=== PATIENT | female | born 1985 | race Caucasian/White ===

== ENCOUNTER 2020-12-28 12:53 | Emergency (ER) | payer OTHER, SELFPAY ==
[2020-12-28 13:16] VITALS: BP 115/68; PULSE 85; RESP 18; TEMP 37.2; O2SAT 100; BMI 16.9
[2020-12-28 14:51] LABS: MANUAL DIFF FLAG NO
[2020-12-28 14:52] LABS: Basophils Percent Auto 0.9 % (0-2); Eosinophils Absolute Auto 0.1 X10*3/uL (0.0-0.4); Eosinophils Percent Auto 1.3 % (0-4); Hemoglobin 12.8 g/dl (12.0-16.0); Imm Gran Abs Auto 0.01 X10*3/uL (0.00-0.03); Imm Gran Pct Auto 0.2 % (0.0-0.4); Lymphocytes Absolute Auto 1.5 X10*3/uL (1.2-4.9); Lymphocytes Percent Auto 32.9 % (20-40); Mean Corpuscular HGB Conc 33.7 g/dl (31.0-35.0); Mean Corpuscular Hemoglobin 31.8 pg (27.0-33.0); Mean Corpuscular Volume 94.5 fL (80-98); Mean Platelet Volume 10.8 fL (9.4-12.3); Monocytes Absolute Auto 0.4 X10*3/uL (0.1-1.2); Monocytes Percent Auto 8.6 % (2-11); Neutrophils Absolute Auto 2.6 X10*3/uL (2.0-8.3); Neutrophils Percent Auto 56.1 % (45-73); Platelet Count 231 X10*3/uL (160-400); Red Blood Count 4.02 X10*6/uL (4.20-5.50); Red Cell Distribution Width 11.8 % (11.0-16.0); White Blood Count 4.7 X10*3/uL (4.8-10.8)
[2020-12-28 15:15] LABS: Alanine Aminotransferase 10 U/L (0-31); Albumin Level 4.6 g/dL (3.5-5.0); Alkaline Phosphatase 56 U/L (39-117); Amylase 58 U/L (28-100); Anion Gap 13 (12-20); Aspartate Amino Transferase 16 U/L (5-31); Bilirubin Direct 0.2 mg/dL (0.0-0.5); Bilirubin Total 0.6 mg/dL (0.0-1.0); Blood Urea Nitrogen 14 mg/dL (9-16); Carbon Dioxide 27 mmol/L (22-29); Chloride 106 mmol/L (96-108); Creatinine Clr Calc Pharmacy 72.4; Estimated Glomerular Filt Rate > 60; Glucose Random 88 mg/dL (60-115); Lipase 24 U/L (8-78); Sodium 142 mmol/L (135-145); Total Protein 7.1 g/dL (6.5-8.0)
--- NOTE | 2020-12-28 15:27 | ED.GENADULT ---
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 syringe and needle was sticking up from the top of the box and stuck her right index finger through a glove on the needle, which is most likely fresh as it was in the top of the box There is no way to determine who was the source patient Related Data Previous Rx's Medication Instructions Recorded emtricitabine-tenofovir (TDF) 1 tab PO DAILY #5 tab 12/28/20 [Truvada] emtricitabine-tenofovir (TDF) 1 tab PO DAILY #7 tab 12/28/20 [Truvada] raltegravir [Isentress] 400 mg PO BID #10 tab 12/28/20 raltegravir [Isentress] 400 mg PO BID #10 tab 12/28/20 Allergies Allergy/AdvReac Type Severity Reaction Status Date / Time No Known Allergies Allergy Verified 12/28/20 14:23 Review of Systems Review of Systems: Positive for needlestick to right index finger Negatives are no fever no chills no dizziness no weakness no skin rash no numbness or tingling PMFSH Past Medical History Source: nursing notes reviewed Social History Social History Advance Directives: No Advance Directives Information Provided: Yes Physical Exam Vital Signs: Vital Signs: Last Vital Signs Temp 98.9 F 12/28/20 13:16 Pulse 85 12/28/20 13:16 Resp 18 12/28/20 13:16 BP 115/68 12/28/20 13:16 Pulse Ox 100 12/28/20 13:16 Body Mass Index 16.9 General appearance no distress comfortable relax cooperative Neck is supple Respiratory no distress Extremity exam full range of motion x4 Right finger tip there was no visible wound but patient did say she pushed some blood out of it after the stick Skin no rash Neuro no focal deficit Course Course Course Narrative: It was discussed with patient that remote risk of HIV infection cannot be eliminated as it is unclear who is the source patient and the fingerstick was fresh despite being through a glove She is informed risk is very low but there is no way to completely eliminate risk and she opted to take the prophylaxis and she will follow with [facility] for further evaluation and prophylaxis was offered, but when about to take the medicine she said she wants to think about it more did not want to take it now and asked if I could write a prescription It was explained that if she is going to take the medicine the longer we await the less the benefit and she still wants to take some time to decide Medical Decision Making Lab Data Result diagrams: 12/28/20 14:46 12/28/20 14:46 Labs: Lab Results 12/28/20 12/28/20 12/28/20 Range/Units 14:46 14:46 14:46 WBC 4.7 L (4.8-10.8) X10*3/uL RBC 4.02 L (4.20-5.50) X10*6/uL Hgb 12.8 (12.0-16.0) g/dl Hct 38.0 (37-47) % MCV 94.5 (80-98) fL MCH 31.8 (27.0-33.0) pg MCHC 33.7 (31.0-35.0) g/dl RDW 11.8 (11.0-16.0) % Plt Count 231 (160-400) X10*3/uL MPV 10.8 (9.4-12.3) fL Immature Gran % (Auto) 0.2 (0.0-0.4) % Neut % (Auto) 56.1 (45-73) % Lymph % (Auto) 32.9 (20-40) % Calvert % (Auto) 8.6 (2-11) % Eos % (Auto) 1.3 (0-4) % Baso % (Auto) 0.9 (0-2) % Lymph # (Auto) 1.5 (1.2-4.9) X10*3/uL Calvert # (Auto) 0.4 (0.1-1.2) X10*3/uL Eos # (Auto) 0.1 (0.0-0.4) X10*3/uL Baso # (Auto) 0.0 (0.0-0.2) X10*3/uL Abs Immat Gran (auto) 0.01 (0.00-0.03) X10*3/uL Absolute Neuts (auto) 2.6 (2.0-8.3) X10*3/uL Absolute Nucleated RBC 0.000 (0.0-0.012) X10*3/uL Nucleated RBC % (auto) 0.0 (0.0-0.2) /100WBC Sodium 142 (135-145) mmol/L Potassium 4.0 (3.3-5.1) mmol/L Chloride 106 (96-108) mmol/L Carbon Dioxide 27 (22-29) mmol/L Anion Gap 13 (12-20) BUN 14 (9-16) mg/dL Creatinine 0.83 (0.5-1.4) mg/dL Estim Creat Clear Calc 72.4 Estimated GFR > 60 Random Glucose 88 (60-115) mg/dL Calcium 9.0 (8.4-10.2) mg/dL Total Bilirubin 0.6 (0.0-1.0) mg/dL Direct Bilirubin 0.2 (0.0-0.5) mg/dL AST 16 (5-31) U/L ALT 10 (0-31) U/L Alkaline Phosphatase 56 (39-117) U/L Total Protein 7.1 (6.5-8.0) g/dL Albumin 4.6 (3.5-5.0) g/dL Amylase 58 (28-100) U/L Lipase 24 (8-78) U/L Hep Bs Antigen Negative (Negative) Hep Bs Antibody REACTIVE (Nonreactive) Hep B Core Total Ab Nonreactive (Nonreactive) Hepatitis C Ab (EIA) Nonreactive (Nonreactive) HIV 1&2 Ab/P24 Ag 4thGn Nonreactive (Nonreactive) Discharge Plan Discharge Clinical Impression: Needle stick injury Patient Disposition: Home, Self-Care Additional Instructions: You got a needlestick injury from an unknown patient, so we cannot test the source patient to determine risk Risk is very low but it is not 0 We discussed whether not to start the prophylaxis and you did not want to start it at this time so I gave you the prescription Follow with [facility] on Tuesday Return any concerns Prescriptions: New emtricitabine-tenofovir (TDF) [Truvada] 200-300 mg tablet 1 tab PO DAILY Qty: 7 RF: 0 Isentress 400 mg tablet 400 mg PO BID Qty: 10 RF: 0 emtricitabine-tenofovir (TDF) [Truvada] 200-300 mg tablet 1 tab PO DAILY Qty: 5 RF: 0 Isentress 400 mg tablet 400 mg PO BID Qty: 10 RF: 0 Referrals: [facility] [Provider Group] - 2 days (Patient who got a needlestick injury after giving a COVID vaccine shot) Interventions: ED Discharge Assessment Last Done: 12/28/20 15:50 Discharge Date/Time: 12/28/20 15:50
--- NOTE | 2020-12-28 15:43 | PC.NURSE ---
pt declined to start prophylactic meds at present time, states wants to think about it, requests meds sent to pharmacy, adam shukla updated and agreeable to poc also urine test not required r/t hx tubal ligation
[2020-12-29 08:14] LABS: Hepatitis B Core Antibody Nonreactive (Nonreactive); ~HepC Num1 0.07 S/CO (0.00-0.79); ~Hepatitis B Surface Antibody REACTIVE (Nonreactive); ~Hepatitis C Antibody Nonreactive (Nonreactive)
[2020-12-29 08:19] LABS: HIV AB/AG Nonreactive (Nonreactive); HIV Num 1 0.06 S/CO (0.00-0.99); Hepatitis B Surface Antigen Negative (Negative)
== END 2020-12-28 15:50 | disposition home or self-care (01) ==
PROVIDERS: Physician Assistant Medical; Emergency Provider Emergency Medicine; PCP Internal Medicine
DX: Z04.2 Encounter for examination and observation following work accident (principal); Z77.21 Contact with and (suspected) exposure to potentially hazardous body fluids
CPT/HCPCS: 36415; 80048; 80076; 82150; 83690; 85025; 86704; 86706; 86803; 87340; 87389; 99283; 99285

== ENCOUNTER 2022-01-04 13:27 | Outpatient (REF) | payer OTHER, SELFPAY ==
[2022-01-05 03:47] LABS: CT PCR NOT DETECTED (Not Detect.); NG PCR NOT DETECTED (Not Detect.)
[2022-01-05 15:22] LABS: BV Int Neg Control Negative (Negative); BV Int Pos Control Positive (Positive)
[2022-01-07 11:43] LABS: HPV mRNA E6/E7 rflx Not Detected (Not Detected)
== END 2022-01-04 13:28 | disposition home or self-care (01) ==
LOC: HO.LAB 13:27
PROVIDERS: PCP Internal Medicine; Visit Provider Advanced Practice Midwife
DX: Z01.411 Encounter for gynecological examination (general) (routine) with abnormal findings (principal); Z11.51 Encounter for screening for human papillomavirus (HPV); N92.1 Excessive and frequent menstruation with irregular cycle; N89.8 Other specified noninflammatory disorders of vagina; Z20.2 Contact with and (suspected) exposure to infections with a predominantly sexual mode of transmission
CPT/HCPCS: 87480; 87491; 87510; 87591; 87624; 87660; 88142

== ENCOUNTER 2024-07-18 08:44 | Outpatient (AMB) | payer BC, SELFPAY ==
--- NOTE | 2024-07-18 08:59 | A.OFFVIS_ITS ---
Vital Signs 07/18/24 09:00 Height 5 ft 6 in BP 102/64 Intake Visit Reasons: prolonged vaginal bleeding Intake Note: Bleeding since 06/22/24 has lightened Allergies No Known Allergies Allergy (Verified 07/18/24 09:02) Is last menstrual period known: Yes Last menstrual period: 06/18/24 HPI Comments Details: Patient is here today with history of abnormal uterine bleeding, onset June 22 to present day. UPT is negative. Cycles are usually monthly lasting 5-7 days. No new intimate partners. She denies any pelvic pain. History of bilateral tubal ligation. Interested in a uterine ablation. She has also used Depo-Provera in the past without any concerns with side effects and is open to use again, has heard negative things about the Mirena IUD. REPLACED BY [facility] Surgical History Hx of tubal ligation H/O breast augmentation Family History (Updated 07/18/24 @ 09:05 by SARAH Suarez) Maternal Grandmother Ovarian cancer Social History Alcohol intake: current Alcohol intake frequency: a few times a month Patient Tobacco Use Status: Former Tobacco user Sexual orientation: Straight/Heterosexual Gender identity: Female Female Reproductive History Menstrual Duration of menses: 6-7 days Date of last menstrual period: 06/18/24 control method: permanent sterilization Permanent Sterilization: BTL Date of last pap smear: 01/04/22 (neg pap and hpv) Review of Systems Const All systems reviewed & are unremarkable except as noted in HPI and below Physical Exam Vital Signs: Last Vital Signs BP 102/64 07/18/24 09:00 Const General: cooperative, healthy appearing and no acute distress Orientation/consciousness: patient oriented x3 GI Inspection: Yes normal to inspection Palpation (GI): Soft to palpation and Other GI palpation findings present (Nont celia) Rectal Exam - Female: visual inspection normal General: Yes bladder normal to palpation External Female Exam: normal appearance of the urethra Speculum Exam - Vagina: normal appearance of the vagina, normal palpation, normal vaginal discharge and vaginal bleeding Speculum Exam - Cervix: normal appearance of the cervix and normal palpation Bimanual exam- vagina & uterus: normal bimanual exam, normal palpation, uterine size normal, bladder normal to palpation, normal palpation, uterine shape normal and non-tender Bimanual Exam- Adnexa, other: normal adnexae OB/external & speculum: vaginal bleeding Neuro General: patient oriented x3 Assessment & Plan Assessment & Plan (1) Abnormal uterine bleeding (AUB): Code(s): N93.9 - Abnormal uterine and vaginal bleeding, unspecified Category: Medical Plan Discussed: Workup for AUB to include pelvic ultrasound, GC chlamydia and BV panel, TSH and CBC. Consider endometrial biopsy if indicated. Medical management, option for Mirena IUD- booklet given, uterine ablation-not usually 1st option, hysterectomy last resort. Pelvic ultrasound ordered, follow up in person for results and further plan of care. If bleeding is heavy or any symptoms such as lightheadedness, dizziness, shortness of breath to report to the office immediately or to the ED for further evaluation. Encouraged good hydration. All of her questions and concerns were addressed to the best of my ability and shared decision making. She is agreeable to the plan of care. This note is constructed using voice recognition software. While every effort has been made to ensure accuracy, construction pit worker errors may have been included. Orders: Orders AMB HCG Urine Test Today N93.9 - Abnormal uterine and vaginal bleeding, unspecified, Z32.02 - Encounter for test, result negative Thyroid Stimulating Hormone Today N92.1 - Excessive and frequent menstruation with irregular cycle, N93.9 - Abnormal uterine and vaginal bleeding, unspecified Complete Blood Count no Diff Today N93.9 - Abnormal uterine and vaginal bleeding, unspecified Bacterial Vaginosis Panel Today N93.9 - Abnormal uterine and vaginal bleeding, unspecified PAP + HPV E6/E7 rfx 18/45 Today N93.9 - Abnormal uterine and vaginal bleeding, unspecified US pelvic and transvaginal Today N93.9 - Abnormal uterine and vaginal bleeding, unspecified CT NG by PCR Today N93.9 - Abnormal uterine and vaginal bleeding, unspecified Medications: Discontinued emtricitabine-tenofovir (TDF) 200-300 mg (Truvada) Discontinued Reason: Patient Completed Course 1 tab PO DAILY 5 tabs 0RF raltegravir (Isentress) Discontinued Reason: Patient Completed Course 400 mg PO BID 10 tabs 0RF metronidazole Discontinued Reason: Patient Completed Course 500 mg PO BID 7 days 14 tabs 0RF Coding Level of Care Code Est Pt Level 4 (69880) Diagnoses Abnormal uterine bleeding (AUB) N93.9
[2024-07-18 09:00] VITALS: BP 102/64
== END 2024-07-18 09:55 | disposition home or self-care (01) ==
LOC: HO.HWS 08:44
PROVIDERS: PCP Internal Medicine; Visit Provider Advanced Practice Midwife
DX: N93.9 Abnormal uterine and vaginal bleeding, unspecified (principal)
CPT/HCPCS: 99214

== ENCOUNTER 2024-07-18 08:44 | Outpatient (REF) | payer BC, SELFPAY | END 2024-07-18 08:45 | disposition home or self-care (01) | LOC: HO.LAB 08:44 | PROVIDERS: PCP Internal Medicine; Visit Provider Advanced Practice Midwife | DX: Z13.89 Encounter for screening for other disorder (principal) ==

== ENCOUNTER 2024-07-18 09:49 | Outpatient (REF) | payer BC, SELFPAY ==
[2024-07-19 04:10] LABS: CT PCR NOT DETECTED (Not Detect.); NG PCR NOT DETECTED (Not Detect.)
[2024-07-19 11:29] LABS: Bacterial Vaginosis PCR POSITIVE (Negative); Candida Group PCR NOT DETECTED (Not Detect); Candida glab krusei PCR NOT DETECTED (Not Detect); Trichomonas vaginalis PCR NOT DETECTED (Not Detect)
[2024-07-20 11:14] LABS: HPV mRNA E6/E7 Not Detected (Not Detected)
== END 2024-07-18 09:50 | disposition home or self-care (01) ==
LOC: HO.LNP 09:49
PROVIDERS: Visit Provider Advanced Practice Midwife
DX: N93.9 Abnormal uterine and vaginal bleeding, unspecified (principal)
CPT/HCPCS: 0352U; 87491; 87591; 87624; 88175

== ENCOUNTER 2024-07-20 06:29 | Outpatient (REF) | payer BC, SELFPAY ==
[2024-07-20 06:49] LABS: Hematocrit 35.6 % (37.0-47.0); Hemoglobin 11.9 g/dl (12.0-16.0); Mean Corpuscular HGB Conc 33.4 g/dl (31.0-35.0); Mean Corpuscular Hemoglobin 31.3 pg (27.0-33.0); Mean Corpuscular Volume 93.7 fL (80.0-98.0); Mean Platelet Volume 10.2 fL (9.4-12.3); Platelet Count 226 X10*3/uL (160-400); White Blood Count 5.3 X10*3/uL (4.8-10.8)
[2024-07-20 07:33] LABS: Thyroid Stimulating Hormone 2.29 uIU/mL (0.32-4.0)
== END 2024-07-20 06:30 | disposition home or self-care (01) ==
LOC: HO.LAB 06:29
PROVIDERS: PCP Family Medicine; Visit Provider Advanced Practice Midwife
DX: N93.9 Abnormal uterine and vaginal bleeding, unspecified (principal); N92.1 Excessive and frequent menstruation with irregular cycle
CPT/HCPCS: 36415; 84443; 85027

== ENCOUNTER 2025-01-03 10:47 | Outpatient (REF) | payer BC, SELFPAY ==
--- NOTE | ~2025-01-03 | US_ITS ---
CLINICAL HISTORY: N93.9 - Abnormal uterine and vaginal bleeding, unspecified Transabdominal and transvaginal pelvic ultrasound Comparison: None Findings: Uterus 9.0 x 4.3 x 6.1 cm. Endometrium 1.1 cm. Trace free fluid in cul-de-sac. Right ovary 3.1 x 1.7 x 2.2 cm. Left ovary 3.0 x 2.0 x 6.3 cm. No significant focal abnormality. Impression: No significant abnormality. This document has been electronically signed by: Austin Paz MD on 01/03/2025 20:13:22
--- OUTSIDE RECORDS SUMMARY | 2025-01-03 11:59 | XMS_ITS | Clinical Summary ---
Author Organization [address] Address [address] [place] [phone] Phone Care Team Providers Care Record Tester Name Role Phone Tee Smalls MD Primary Care Pr ovider Allergies No known active allergies Medications hydrOXYzine HCL (ATARAX) 10 mg tablet Take 1 Tablet by mouth at bedtime as needed for Anxiety. 4 Active MELATONIN ORAL Melatonin 1 MG Cap - Take 5 Caps by mouth at bedtime 9 Active Active Problems Problem Noted Date Diagnosed Date Right elbow pain 11/05/2024 Underweight 08/22/2023 Insomnia 09/24/2019 Anxiety 09/24/2019 Tattoo of skin 02/01/2014 Encounters Date Type Department Care Team Description 12/13/2024 4:30 PM EDT Treatment [facility] [address] [phone] Hannah Ramirez OT Right elbow pain (Primary Dx) 12/04/2024 4:30 PM EST Treatment [facility] [address] [phone] Hannah Ramirez OT Right elbow pain (Primary Dx) 11/27/2024 1:15 PM EST Treatment [facility] [address] [place] [phone] Hannah Ramirez OT Right elbow pain (Primary Dx) 11/13/2024 1:15 PM EST Treatment [facility] [address] [place] [phone] Hannah Ramirez OT Right elbow pain (Primary Dx) 11/05/2024 8:30 AM EST Evaluation [facility] [address] [phone] Hannah Ramirez OT Right elbow pain (Primary Dx); Referral of patient 11/05/2024 Plan of Care Documentation [facility] [address] [phone] 10/24/2024 Telephone Adult Medicine [address] [phone] Tee Smalls MD from Last 3 Months Immunizations Name Administration Dates Next Due DTP 01/21/1992, 9,04/15/1988,12/08,1987 Hepatitis B (Ctbwomi-N-Yuldy , Recombivax HB-Adult) 19yo and older 04/20/2000,01/21/2000,12/23/1999 IPV Inactivated polio (Ipol) 6wks and older 01/21/1992,04/29/1989,1987,10/07 Influenza trivalent, 0.5mL, preservative free (Fluarix; FluLaval; Fluzone) ages 6mo and older (Afluria) 3 years and older 10/04/2012 Influenza, Unspecified 07/25/2023 MMR, measles mumps and rubel la Live (Priorix; M-M-R II) 12mo and older 12/23/1999,10/22/1988 Meningococcal MCV4P 04/15/2015 PPD Test 04/15/2015 Td Tetanus diptheria (Tdvax) 7yo and older 12/23/1999 Tdap Tetanus diptheria acell ular pertussis (Boostrix; Adacel) 7yo and older 02/01/2012 Surgical History Surgery Date Site/Laterality Comments TUBAL LIGATION PROCEDURE: HISTORICAL TUBAL LIGATION BREAST RECONSTRUCTION 05/14/2016 Bilateral PROCEDURE: BREAST RECONSTRUCTION; COMMENT: Augmentation; Dr. Deysi Gupta Medical History Medical History Date Comments Anxiety DX:Anxiety Insomnia DX:Insomnia Family History Medical History Relation Name Comments No Known Problems Daughter Other: pre diabetes Father Cirrhosis Maternal Grandfather No Known Problems Maternal Grandmother Depression Mother Cirrhosis Paternal Grandfather No Known Problems Sister 1 No Known Problems Sister 2 No Known Problems Son Colon cancer Neg Hx Relation Name Status Comments Daughter Alive Father Alive leaky valve Maternal Grandfather Maternal Grandmother Alive Mother Alive svt Paternal Grandfather Paternal Grandmother Sister 1 Alive Sister 2 Alive Son Alive Social History Tobacco Use Types Packs/Day Years Used Date Smoking Tobacco: Former Smokeless Tobacco: Never Alcohol Use Standard Drinks/Week Comments Yes 0 (1 standard drink = 0.6 oz pur e alcohol) Comments Unknown Sex and Gender Information Value Date Recorded Sex Assigned at Not on file Legal Sex Female 9:31 PM EDT Gender Identity Not on file Sexual Orientation Not on file Obstetrics History Last Filed Vital Signs Vital Sign Reading Time Taken Comments Blood Pressure 105/69 08/02/2024 2:09 PM EDT Pulse 85 08/02/2024 2:09 PM EDT Temperature - - Respiratory Rate - - Oxygen Saturation - - Inhaled Oxygen Concentration - - Weight 51.7 kg (114 lb) 08/02/2024 2:09 PM EDT Height 165.1 cm (5' 5 ) 08/02/2024 2:09 PM EDT Body Mass Index 18.97 08/02/2024 2:09 PM EDT Plan of Treatment Health Maintenance Due Date Last Done Comments DTaP,Tdap,and Td Vaccines (8 - Td or Tdap) 01/31/2022 02/01/2012, 12/23/1999, 01/21/1992, Additional history exists Depression Screening 02/19/2022 HIV Screening 02/19/2022 Hepatitis C Screening 02/19/2022 Social Influencers of Health Screening 02/19/2022 COVID-19 Vaccine ( season) 2024 09/22/2021, 11/26/2020, 10/29/2020 Influenza Vaccine (#1) 2024 , 07/17/2021, 07/07/2020, Additional history exists Cervical Cancer Screening: Pap Smear 01/04/2025 01/04/2022 Cholesterol Screening (Lipid Panel) 08/02/2029 08/02/2024, 08/02/2024 IPV Vaccines Completed 01/21/1992, 04/03, 1987, Additional history exists MMR Vaccines Completed 12/23/1999, 10/22/1988 Hepatitis B Vaccines Completed 04/20/2000, 01/21/2000, 12/23/1999 Meningococcal ACWY Vaccine Aged Out 04/15/2015 N o longer eligible based on patient's age to complete this topic HIB Vaccines Aged Out No longer eligi ble based on patient's age to complete this topic HPV Vaccines Aged Out No longer eligi ble based on patient's age to complete this topic Hepatitis A Vaccines Aged Out No long er eligible based on patient's age to complete this topic Meningococcal B Vacine Aged Out No lo nger eligible based on patient's age to complete this topic Pneumococcal Vaccine: Pediatrics (0 to 5 Years) and At-Risk Patients (6 to 64 Years) Aged Out No longer eligible based on patient's age to complete this topic RSV Immunization Patients Under 20 months Aged Out No longer eligible based on patient's age to complete this topic Varicella Vaccines Aged Out No longer eligible based on patient's age to complete this topic Goals Goal Patient Goal Type Associated Problems Recent Progress Patient-Stated? Author <enter goal here> General Yes Hannah Ramirez, OT Note: HAVE LESS PAIN AND MORE STRENGTH RIGHT ARM <OT STGS 6 TO 8 VISITSenter goal here> General No Hannah Ramirez, OT Note: # 1 NO VISIBLE EDEMA # 2 EQUAL SCAPULA POSITION AT REST # 3 IMPROVE ELBOW EXTENSION FROM - 25 TO A NEUTRAL 0 DEGREES UPON REACH # 4 IMPROVE RIGHT SUPINATION FROM 50 TO 70 DEGREES TO RECEIVE ITEMS INTO PALM # 5 IMPROVE WRIST EXTENSION FROM 45 TO 60 DEGREES WITH GOOD STRENGTH TO WEIGHTBEAR # 6 IMPROVE RIGHT PROTECTION MANAGER FROM 20 TO 40 POUNDS = 50 PERCENT OF THE LEFT # 7 INCORPORATE POSTURAL AWARENESS AND STRETCHING INTO DAILY REGIME Procedures Procedure Name Priority Date/Time Associated Diagnosis Comments LIPID PANEL Routine 08/02/2024 HM PAP SMEAR Routine 01/04/2022 from Last 3 Months or Most Recently Relevant to Health Maintenance Results * (ABNORMAL) Lipid panel (08/02/2024) LDL/HDL Ratio 3 0 - 4 Triglycerides 60 0 - 150 mg/dL Cholesterol 193 0 - 200 mg/dL HDL 76 >=40 mg/dL LDL Cholesterol 105(A) 0 - 100 mg/dL Blood Venous blood specimen / Unknown Historical Provider LAB BLOOD ORDERABLES Nicolle l Result * Pap Smear (01/04/2022) Pap smear abstracted,no interpretation Historical Provider HEALTH MAINTENANCE Final Result from Last 3 Months or Most Recently Relevant to Health Maintenance Insurance [facility] ([facility]) Care Teams Record Tester Relationship Specialty Start Date End Date Tee Smalls MD [address] [place] [address] [phone] PCP - General 05/30/23
== END 2025-01-03 10:48 | disposition home or self-care (01) ==
LOC: HO.US 10:47
PROVIDERS: PCP Family Medicine; Visit Provider Advanced Practice Midwife
DX: N93.9 Abnormal uterine and vaginal bleeding, unspecified (principal)
CPT/HCPCS: 76830; 76856

== ENCOUNTER → 2025-01-03 10:49 | Outpatient (BNV) | payer BC, SELFPAY | PROVIDERS: PCP Family Medicine; Visit Provider Radiology Diagnostic Radiology | DX: N93.9 Abnormal uterine and vaginal bleeding, unspecified (principal) | CPT/HCPCS: 76830; 76856 ==

== ENCOUNTER 2025-01-08 15:23 | Outpatient (AMB) | payer BC, SELFPAY ==
--- NOTE | 2025-01-08 15:23 | MHC.OFFVIS ---
Intake Visit Reasons: US follow up Intake Note: cell #[phone] Children'S Nursery Assistant: Children'S Nursery Assistant Present Allergies No Known Allergies Allergy (Verified 01/08/25 15:24) Is last menstrual period known: Yes Last menstrual period: 01/04/25 HPI Comments Details: Tele Health Visit Total time I personally spent on visit and management today: 22 minutes. Time spent included review of pertinent office notes in the electronic health record; review of laboratory and imaging results; review of personal family medical history; discussing diagnosis and plan of care with the patient; documenting the encounter in the EMR. Patient presents to discuss: Ultrasound findings, history of a episode of AUB-prolonged menses, reports monthly heavy menses 3/5 to 6 days. History of tubal ligation. Currently has cycle today. PFSH Surgical History Hx of tubal ligation H/O breast augmentation Family History Maternal Grandmother Ovarian cancer Social History Alcohol intake: current Alcohol intake frequency: a few times a month Patient Tobacco Use Status: Former Tobacco user Sexual orientation: Straight/Heterosexual Gender identity: Female Female Reproductive History Menstrual Date of last menstrual period: 01/04/25 Review of Systems Const All systems reviewed & are unremarkable except as noted in HPI and below Endo Reports no additional complaints Physical Exam Const General: cooperative, healthy appearing and no acute distress Psych Appearance: well kempt Attitude: cooperative Thought process: Normal thought process present Telehealth Telehealth Telehealth Platform: Mind Palette Location of provider rendering services: practice address Location of patient: other Patient Identification confirmed using: Name, : Yes Telehealth method: video Patient verbally consented to treatment: Yes Patient verbally consented to billing insurance company: Yes Patient informed of any privacy concerns related to visit: Yes Results Reviewed Results Reviewed: [address] [address] Ultrasound Report Signed Patient: Ernestina Rojas MR#: [id number] : 1985 Acct:[id number] Age/Sex: 39 / F ADM Date: 01/03/25 Loc: HO. Attending Dr: Dora Garcia CNM Ordering Physician: Dora Garcia CNM Date of Service: 01/03/25 Procedure(s): US pelvic and transvaginal Accession Number(s): [id number] cc: Dora Garcia CNM; Tee Smalls MD~ CLINICAL HISTORY: N93.9 - Abnormal uterine and vaginal bleeding, unspecified Transabdominal and transvaginal pelvic ultrasound Comparison: None Findings: Uterus 9.0 x 4.3 x 6.1 cm. Endometrium 1.1 cm. Trace free fluid in cul-de-sac. Right ovary 3.1 x 1.7 x 2.2 cm. Left ovary 3.0 x 2.0 x 6.3 cm. No significant focal abnormality. [place] [id number] Ultrasound Report Signed Patient: Ernestina Rojas MR#: [id number] : 1985 Acct:[id number] Age/Sex: 39 / F ADM Date: 01/03/25 Loc: HO.US Attending Dr: Dora Garcia CNM Ordering Physician: Dora Garcia CNM Date of Service: 01/03/25 Procedure(s): US pelvic and transvaginal Accession Number(s): [id number] cc: Dora Garcia CNM; Tee Smalls MD~ CLINICAL HISTORY: N93.9 - Abnormal uterine and vaginal bleeding, unspecified Transabdominal and transvaginal pelvic ultrasound Comparison: None Findings: Uterus 9.0 x 4.3 x 6.1 cm. Endometrium 1.1 cm. Trace free fluid in cul-de-sac. Right ovary 3.1 x 1.7 x 2.2 cm. Left ovary 3.0 x 2.0 x 6.3 cm. No significant focal abnormality. Impression: No significant abnormality. This document has been electronically signed by: Austin Paz MD on 01/03/2025 20:13:22 Dictated By: Austin Paz MD Signed By: <Electronically signed by Austin Paz MD in OV> 01/03/252012 DD/ 12 TD/TT: 01/03/252012 Cartridge Filler: stormy This document has been electronically signed by: Austin Paz MD on 01/03/2025 20:13:22 Dictated By: Austin Paz MD Signed By: <Electronically signed by Austin Paz MD in OV> 01/03/252012 DD/ 12 TD/TT: 01/03/252012 Cartridge Filler: Assessment & Plan Assessment & Plan (1) Abnormal uterine bleeding (AUB): Code(s): N93.9 - Abnormal uterine and vaginal bleeding, unspecified Category: Medical Plan: Previous lab work and ultrasound reviewed today. Plan Discussed: Ultrasound findings- Impression: No significant abnormality. Medical treatment options, considerations for the Mirena IUD, and all other products available. Mirena information provided. She would like to try the Mirena IUD. Plan appointment tomorrow. Counseled pre procedure planning-advised to have something to eat and drink and take 3 Advil 1 hour before her appointment time. Medications: Discontinued metronidazole Take with food, Avoid alcohol and vinegar products Discontinued Reason: Patient Completed Course 500 mg PO BID 7 days 14 tabs 0RF Coding Level of Care Code Tele Est Pt Level 3 (90765) Diagnoses Abnormal uterine bleeding (AUB) N93.9
--- OUTSIDE RECORDS SUMMARY | 2025-01-08 18:17 | XMS_ITS | Clinical Summary ---
Author Organization [address] Address [address] [place] [phone] Phone Care Team Providers Care Senior Stock Plan Administrator Name Role Phone Tee Smalls MD Primary [...] PM EDT Treatment [facility] [address] [phone] Hannah Ramirez OT Right elbow pain (Primary Dx) 12/04/2024 4:30 PM EST Treatment [facility] [address] [phone] Hannah Ramirez OT Right elbow pain (Primary Dx) 11/27/2024 1:15 PM EST Treatment [facility] [address] [place] [phone] Hannah Ramirez OT Right elbow pain (Primary Dx) 11/13/2024 1:15 PM EST Treatment [facility] [address] [place] [phone] Hannah Ramirez OT Right elbow pain (Primary Dx) 11/05/2024 8:30 AM EST Evaluation [facility] [address] [phone] Hannah Ramirez OT Right elbow pain (Primary Dx); Referral of patient 11/05/2024 Plan of Care Documentation [facility] [address] [phone] 10/24/2024 Telephone Adult Medicine [address] [phone] Tee Smalls MD from Last 3 Months Immunizations Name Administration Dates Next Due DTP 01/21/1992, 9,04/15/1988,12/08,1987 Hepatitis B (Koiftto-L-Rtigm , Recombivax HB-Adult) 19yo and older 04/20/2000,01/21/2000,12/23/1999 [...] Vaccine ( season) 2024 09/22/2021, 11/26/2020, 10/29/2020 Cervical Cancer Screening: Pap Smear 01/04/2025 01/04/2022 Influenza Vaccine (Season Ended) 2025 07/25/2023, 07/17/2021, 07/07/2020, Additional history exists Cholesterol Screening (Lipid Panel) 08/02/2029 08/02/2024, 08/02/2024 [...] age to complete this topic Meningococcal B Vaccine Aged Out No l onger eligible based on patient's age to complete [...] STRENGTH TO WEIGHTBEAR # 6 IMPROVE RIGHT KETTLE CHIPPER FROM 20 TO 40 POUNDS = 50 [...] Most Recently Relevant to Health Maintenance Insurance [facility] ([facility]) Care Teams Senior Stock Plan Administrator Relationship Specialty Start Date End Date Tee Smalls MD [address] [place] [phone] PCP - General 05/30/23
== END 2025-01-08 17:04 | disposition home or self-care (01) ==
LOC: HO.HWS 15:23
PROVIDERS: PCP Family Medicine; Visit Provider Advanced Practice Midwife
DX: N93.9 Abnormal uterine and vaginal bleeding, unspecified (principal)
CPT/HCPCS: 99499

== ENCOUNTER 2025-01-09 15:07 | Outpatient (AMB) | payer BC, SELFPAY ==
[2025-01-09 15:20] VITALS: BP 98/64; BMI 18.4
--- NOTE | 2025-01-09 15:20 | MHC.OFFVIS ---
Vital Signs 01/09/25 15:20 Height 5 ft 6 in Weight 114 lb BMI 18.4 BP 98/64 Intake Visit Reasons: Mirena insertion Guest Relations Officer Required: No Information Interpreted: non-clinical & clinical Resident Care Coordinator: Resident Care Coordinator Present (Roya SMITH) Accompanied by: Self / Same As Patient Allergies No Known Allergies Allergy (Verified 01/09/25 15:29) Is last menstrual period known: Yes Last menstrual period: 01/04/25 HPI Comments Details: Patient is here today for a Mirena IUD insertion, history of heavy menses. Currently at the end of her menses, history of tubal ligation, UPT was negative. [facility] Medical History IUD (intrauterine device) in place Surgical History Hx of tubal ligation H/O breast augmentation Family History Maternal Grandmother Ovarian cancer Social History Alcohol intake: current Alcohol intake frequency: a few times a month Patient Tobacco Use Status: Former Tobacco user Sexual orientation: Straight/Heterosexual Gender identity: Female Female Reproductive History Menstrual Date of last menstrual period: 01/04/25 control method: permanent sterilization Review of Systems Const All systems reviewed & are unremarkable except as noted in HPI and below Physical Exam Vital Signs: Last Vital Signs BP 98/64 01/09/25 15:20 BMI result Body Mass Index 18.4 Const General: cooperative, healthy appearing and no acute distress Orientation/consciousness: patient oriented x3 GI Inspection: Yes normal to inspection Palpation (GI): Soft to palpation and Other GI palpation findings present (Nontender) Rectal Exam - Female: visual inspection normal General: Yes bladder normal to palpation External Female Exam: normal appearance of the urethra Speculum Exam - Vagina: normal appearance of the vagina, normal palpation, normal vaginal discharge and vaginal bleeding (Small amount of brown blood) Speculum Exam - Cervix: normal appearance of the cervix and normal palpation Bimanual exam- vagina & uterus: normal bimanual exam, normal palpation, uterine size normal, bladder normal to palpation, normal palpation, uterine shape normal and non-tender Bimanual Exam- Adnexa, other: normal adnexae OB/external & speculum: vaginal bleeding (Small amount of brown blood) Neuro General: patient oriented x3 Office Procedures IUD Insert/Removal Details [id number] Insertion Procedure code (CPT) selection complete Contraception Insert/Removal Details Details: The patient is here today for a Mirena IUD insertion for AUB. She was counseled on the side effects including: menstrual cycle changes, pain, infection, bleeding, or expulsion. Risks of injury to the vagina, cervix, uterus, tubes, ovaries, bowel, bladder, and any adjacent tissue, resulting in nerve damage, scarring, and pain. Risks complications for the procedure that may require other test including ultrasounds, Xray, CT or MRI scan, surgery, anesthesia, blood transfusion. A urine test was completed and was negative. She was consented for the IUD insertion and has signed the consent form. All questions were answered. IUD Insertion: The patient was placed in the dorsal lithotomy position and a sterile speculum was inserted. The procedure was completed under aseptic technique. The cervix was cleansed with a Betadine solution x 3 swabs. A single toothed tenaculum was applied to the cervix for stabilization, and the uterus was sounded to 7 cm. The device was inserted and released with a gentle motion. Bleeding from the tenaculum sites and the procedure were minimal. The strings were trimmed to 3cm. All of the equipment was removed and the bimanual was normal, no tip was palpable at the cervical os. The patient tolerated the procedure well and left the office in good condition. Post IUD Insertion Care: There may be some post insertion bleeding for several days that is usually light and can turn to a light brown or pink in color. Mild cramping may occur. Nothing in the vagina including: tampons, douching or intimacy for several days. You may take an over the counter mild analgesia like Tylenol or Advil (if no allergies), per the manufacturers recommendations on dosing and frequency. Follow the directions completely. Call the office if any: fever (over 100.4), flu like symptoms, abdominal pain, worsening cramping not resolved with over the counter medications, foul smelling vaginal odor, signs of infected appearing discharge, or heavy bleeding. Use a condom for a back up method if indicated for 7 days. Always use a condom for STI prevention; IUD's are not protective against STD's. Return to the office in 4-6 weeks for IUD recheck. This note is constructed using voice recognition software. While every effort has been made to ensure accuracy, hot plate plywood press operator errors may have been included. 14322 - Insertion Office Meds Mirena 21 mcg/24 hr (up to 8 years) 52 mg intrauterine device Performing Provider: Dora Garcia CNM Performing Location: [facility] Administered by: Roya Carmona CMA on 01/09/25 16:04 Dose Route Admin Location Dispensed Lot Number Expiration Date [facility] Production Supervisor Off Shift 1 device intrauterine [facility] 1 device [id number] 03/02/27 72304-379-76 [employer] Results AMB Test Urine AMB Test Urine Negative Last Edit by Roya Carmona CMA on 01/09/25 15:30 Results Reviewed Results Reviewed: Laboratory Last Values [facility]st Clinic Negative 01/09/25 15:30 Assessment & Plan Assessment & Plan (1) Encounter for IUD insertion: Code(s): Z30.430 - Encounter for insertion of intrauterine contraceptive device Plan GC chlamydia obtained. Return to the office in 4-6 weeks for IUD check, schedule annual exam can do within same visit if available. The patient expressed understanding and agreement with the plan of care. All of her questions and concerns were addressed to the best of my ability. This note is constructed using voice recognition software. While every effort has been made to ensure accuracy, hot plate plywood press operator errors may have been included. Orders: Orders AMB IUD Insertion/Removal - Practice Supplied Today Z30.430 - Encounter for insertion of intrauterine contraceptive device CT NG by PCR Today N93.9 - Abnormal uterine and vaginal bleeding, unspecified AMB HCG Urine Test Today Z32.02 - Encounter for test, result negative Coding Level of Care Code Procedure Only Diagnoses Encounter for IUD insertion Z30.430 CPT Codes Details - CPT: 36630-MFB Insertion ([id number]) Details - Contraception: 56867 - Insertion ([id number])
--- OUTSIDE RECORDS SUMMARY | 2025-01-09 17:14 | XMS_ITS | Clinical Summary ---
Author Organization [address] Address [address] [place] [phone] Phone Care Team Providers Care Brand Attendant Name Role Phone Tee Smalls MD Primary [...] PM EDT Treatment [facility] [address] [phone] Hannah Ramirez OT Right elbow pain (Primary Dx) 12/04/2024 4:30 PM EST Treatment [facility] [address] [phone] Hannah Ramirez OT Right elbow pain (Primary Dx) 11/27/2024 1:15 PM EST Treatment [facility] [address] [place] [phone] Hannah Ramirez OT Right elbow pain (Primary Dx) 11/13/2024 1:15 PM EST Treatment [facility] [address] [place] [phone] Hannah Ramirez OT Right elbow pain (Primary Dx) 11/05/2024 8:30 AM EST Evaluation [facility] [address] [phone] Hannah Ramirez OT Right elbow pain (Primary Dx); Referral of patient 11/05/2024 Plan of Care Documentation [facility] [address] [phone] 10/24/2024 Telephone Adult Medicine [address] [phone] Tee Smalls MD from Last 3 Months Immunizations Name Administration Dates Next Due DTP 01/21/1992, 9,04/15/1988,12/08,1987 Hepatitis B (Ydrhpjw-B-Zaoxv , Recombivax HB-Adult) 19yo and older 04/20/2000,01/21/2000,12/23/1999 [...] STRENGTH TO WEIGHTBEAR # 6 IMPROVE RIGHT ITALIAN TEACHER FROM 20 TO 40 POUNDS = 50 [...] Most Recently Relevant to Health Maintenance Insurance [facility], [facility]) Care Teams Brand Attendant Relationship Specialty Start Date End Date Tee Smalls MD [address] [place] [phone] PCP - General 05/30/23
== END 2025-01-09 16:23 | disposition home or self-care (01) ==
LOC: HO.HWS 15:07
PROVIDERS: PCP Family Medicine; Visit Provider Advanced Practice Midwife
DX: Z32.02 Encounter for pregnancy test, result negative (principal); Z30.430 Encounter for insertion of intrauterine contraceptive device
CPT/HCPCS: 58300

== ENCOUNTER 2025-01-09 15:07 | Outpatient (REF) | payer BC, SELFPAY ==
--- OUTSIDE RECORDS SUMMARY | 2025-01-09 17:43 | XMS_ITS | Clinical Summary ---
Author Organization [address] Address [address] [place] [phone] Phone Care Team Providers Care Histology Tech Name Role Phone Tee Smalls MD Primary [...] PM EDT Treatment [facility] [address] [phone] Hannah Ramirez OT Right elbow pain (Primary Dx) 12/04/2024 4:30 PM EST Treatment [facility] [address] [phone] Hannah Ramirez OT Right elbow pain (Primary Dx) 11/27/2024 1:15 PM EST Treatment [facility] [address] [place] [phone] Hannah Ramirez OT Right elbow pain (Primary Dx) 11/13/2024 1:15 PM EST Treatment [facility] [address] [place] [phone] Hannah Ramirze OT Right elbow pain (Primary Dx) 11/05/2024 8:30 AM EST Evaluation [facility] [address] [phone] Hannah Ramirez OT Right elbow pain (Primary Dx); Referral of patient 11/05/2024 Plan of Care Documentation [facility] [address] [phone] 10/24/2024 Telephone Adult Medicine [address] [phone] Tee Smalls MD from Last 3 Months Immunizations Name Administration Dates Next Due DTP 01/21/1992, 9,04/15/1988,12/08,1987 Hepatitis B (Hbfkvjq-N-Pthcd , Recombivax HB-Adult) 19yo and older 04/20/2000,01/21/2000,12/23/1999 [...] STRENGTH TO WEIGHTBEAR # 6 IMPROVE RIGHT OFFSET MACHINE OPERATOR FROM 20 TO 40 POUNDS = 50 [...] Most Recently Relevant to Health Maintenance Insurance [facility] ([facility]) Care Teams Histology Tech Relationship Specialty Start Date End Date Tee Smalls MD [address] [place] [phone] PCP - General 05/30/23
[2025-01-10 10:44] LABS: CT PCR NOT DETECTED (Not Detect.); NG PCR NOT DETECTED (Not Detect.)
== END 2025-01-09 15:08 | disposition home or self-care (01) ==
LOC: HO.LNP 15:07
PROVIDERS: PCP Family Medicine; Visit Provider Advanced Practice Midwife
DX: Z30.430 Encounter for insertion of intrauterine contraceptive device (principal); N93.9 Abnormal uterine and vaginal bleeding, unspecified
CPT/HCPCS: 58300; 81025; 87491; 87591; J7298

== ENCOUNTER 2025-02-19 07:59 | Outpatient (AMB) | payer BC, SELFPAY ==
--- NOTE | 2025-02-19 08:02 | MHC.OFFVIS ---
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 Doing well with no sample finisher concerns. Mirena IUD user, random bleeding. Currently is sexually active. She denies vaginal itching or irritation. She tries to eat healthy and stays active with exercise. Denies family history of breast or colon cancer. FH ovarian cancer. Last pap smear 2021, negative. [facility] Medical History IUD (intrauterine device) in place Surgical History Hx of tubal ligation H/O breast augmentation Family History Maternal Grandmother Ovarian cancer Social History Alcohol intake: current Alcohol intake frequency: a few times a month Patient Tobacco Use Status: Former Tobacco user Sexual orientation: Straight/Heterosexual Gender identity: Female Female Reproductive History Menstrual control method: progestin IUCD (Mirena 01/09/25) and permanent sterilization Permanent Sterilization: BTL Total pregnancies: 3 Full term: 2 Number of Living Children: 2 Ab spontaneous: 1 Date of last pap smear: 01/04/22 (neg pap and hpv) History of abnormal pap smear: Yes Review of Systems Const All systems reviewed & are unremarkable except as noted in HPI and below Reports as per HPI Eyes Reports no additional complaints ENT Reports no additional complaints Card Reports no additional complaints Resp Reports no additional complaints GI Reports as per HPI and Reports no additional complaints Reports as per HPI Musc Reports no additional complaints Skin/Breast Reports as per HPI Neuro Reports no additional complaints Psych Reports no additional complaints Endo Reports no additional complaints Tono/Lymph Reports no additional complaints Aller/Immun Reports no additional complaints Physical Exam Vital Signs: Last Vital Signs BP 100/60 02/19/25 08:03 BMI result Body Mass Index 18.6 Const General: cooperative, healthy appearing, no acute distress, well developed and alert Orientation/consciousness: patient oriented x3 HEENT Head: Yes normal to inspection Eyes General: appearance normal, both eyes and all related structures Neck Neck: Yes normal visual inspection Thyroid: Thyroid normal Chest Other: bilateral implants Chest palpation & inspection: normal inspection of the chest and other (no puckering, dimpling, peau de orange, retraction, discharge, masses) Breast/axilla inspection: normal inspection of the breasts Breast/axilla palpation: normal palpation of the breasts Resp Effort & Inspection: normal respiratory effort GI Inspection: Yes normal to inspection Palpation (GI): Soft to palpation Rectal Exam - Female: deferred General: Yes bladder normal to palpation External Female Exam: normal external appearance and normal appearance of the urethra Speculum Exam - Vagina: normal appearance of the vagina, normal palpation, normal vaginal discharge and vaginal bleeding (Small amount at the os) Speculum Exam - Cervix: normal appearance of the cervix, normal palpation and Other cervical findings present (IUD strings at the os) Bimanual exam- vagina & uterus: normal bimanual exam, normal palpation, uterine size normal, bladder normal to palpation, normal palpation and non-tender Bimanual Exam- Adnexa, other: no masses OB/external & speculum: vaginal bleeding (Small amount at the os) Skin General skin exam: no rashes or lesions noted Rashes: no rashes Neuro General: patient oriented x3 Cognition (Neuro): normal cognition Extrem General: Yes normal to inspection Psych Attitude: cooperative Thought process: Normal thought process present Assessment & Plan Assessment & Plan (1) Encounter for well woman exam with routine gynecological exam: Code(s): Z01.419 - Encounter for gynecological examination (general) (routine) without abnormal findings Category: Medical Plan: Discussed: Current recommendations for pap smears per ASCCP guidelines. Breast awareness and periodic breast exams. Maintain a healthy lifestyle including a well balanced diet and routine exercise. Patient verbalizes understanding and agrees to the plan of care. She was given opportunity to ask questions and all questions were answered to the best of my ability. RTO in one year for annual sample finisher examination. This note is constructed using voice recognition software. While every effort has been made to ensure accuracy, deckhand tuna boat errors may have been included. (2) IUD check up: Code(s): Z30.431 - Encounter for routine checking of intrauterine contraceptive device Plan Monitor bleeding, anticipatory guidance, reviewed when to call if there is any concerns for bleeding or pelvic pain. Coding Level of Care Code Est Pt Prev Care 18-39y(26505) Diagnoses Encounter for well woman exam with routine gynecological exam Z01.419 IUD check up Z30.431
[2025-02-19 08:03] VITALS: BP 100/60; BMI 18.6
--- OUTSIDE RECORDS SUMMARY | 2025-02-19 08:03 | XMS_ITS | Clinical Summary ---
Author Organization [address] Address [address] [place] [phone] Phone Care Team Providers Care Integration Manager Name Role Phone Tee Smalls MD Primary [...] Description 12/13/2024 4:30 PM EDT Treatment [facility] [address] [place] [phone] Hannah Ramirez OT Right elbow pain (Primary Dx) 12/04/2024 4:30 PM EST [facility] [address] [place] [phone] Hannah Ramirez OT Right elbow pain (Primary Dx) 11/27/2024 1:15 PM EST Treatment [facility] [address] [place] [phone] Hannah Ramirez OT Right elbow pain (Primary Dx) from Last 3 Months Immunizations Name Administration Dates Next Due DTP 01/21/1992,,04/15/1988,12/08,1987 Hepatitis B (Lgsavvt-D-Apamg , Recombivax HB-Adult) 19yo and older 04/20/2000,01/21/2000,12/23/1999 [...] Author <enter goal here> General Yes Hannah Ramirez OT Note: HAVE LESS PAIN AND MORE STRENGTH RIGHT ARM <OT STGS 6 TO 8 VISITSenter goal here> General No Hannah Ramirez OT Note: # 1 NO VISIBLE EDEMA # 2 EQUAL SCAPULA POSITION AT REST # 3 IMPROVE ELBOW EXTENSION FROM - 25 TO A NEUTRAL 0 DEGREES UPON REACH # 4 IMPROVE RIGHT SUPINATION FROM 50 TO 70 DEGREES TO RECEIVE ITEMS INTO PALM # 5 IMPROVE WRIST EXTENSION FROM 45 TO 60 DEGREES WITH GOOD STRENGTH TO WEIGHTBEAR # 6 IMPROVE RIGHT FERRY ENGINEER FROM 20 TO 40 POUNDS = 50 PERCENT OF THE LEFT # 7 INCORPORATE POSTURAL AWARENESS AND STRETCHING INTO DAILY REGIME Procedures Procedure Name Priority Date/Time Associated Diagnosis Comments LIPID PANEL Routine 08/02/2024 PAP SMEAR Routine 01/04/2022 from Last 3 Months or Most Recently Relevant to Health Maintenance Results * (ABNORMAL) Lipid panel (08/02/2024) LDL/HDL Ratio 3 0 - 4 Triglycerides 60 0 - 150 mg/dL Cholesterol 193 0 - 200 mg/dL HDL 76 >=40 mg/dL LDL Cholesterol 105(A) 0 - 100 mg/dL Blood Venous blood specimen / Unknown us Historical Provider LAB BLOOD ORDERABLES Nicolle l Result * Pap Smear (01/04/2022) Pathologist Pending sale to [facility] Pap smear abstracted,no interpretation us Historical Provider HEALTH MAINTENANCE Final Result from Last 3 Months or Most Recently Relevant to Health Maintenance Insurance [facility] Care Teams Integration Manager Relationship Specialty Start Date End Date Tee Smalls MD [address] [place] [phone] PCP - General 05/30/23
== END 2025-02-19 08:30 | disposition home or self-care (01) ==
LOC: HO.HWS 07:59
PROVIDERS: PCP Family Medicine; Visit Provider Advanced Practice Midwife
DX: Z01.419 Encounter for gynecological examination (general) (routine) without abnormal findings (principal)
CPT/HCPCS: 99395; 99459

== ENCOUNTER → 2025-02-19 07:59 | Outpatient (BNVA) | payer BC, SELFPAY | PROVIDERS: PCP Family Medicine; Visit Provider Advanced Practice Midwife ==